=== PATIENT | female | born 1945 | race Caucasian/White ===

== ENCOUNTER 2019-05-24 22:11 | Inpatient (IN) | payer OTHER, BC ==
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
--- NOTE | 2019-05-24 22:33 | PDOC ---
Attending Attestation - Resident Resident Name: Renetta Rice - ED Attending Attestation I have performed the following: I have examined & evaluated the patient, The case was reviewed & discussed with the resident, I agree w/resident's findings & plan - HPI HPI: 05/24/19 23:46 see resident hpi - Physicial Exam PE: 05/24/19 23:47 agree with resident exam - Medical Decision Making 05/24/19 23:47 74-year-old female recently admitted for COPD exacerbation now with shortness of breath and productive cough Chest x-ray shows no focal infiltrate to suggest pneumonia Plan for readmission to the hospital for COPD exacerbation
[2019-05-24] MEDS ORDERED: ALBUTEROL SO4 2.5/IPRATROPIUM 0.5 INH SOL 3 ML VIAL.NEB. NEB ONE ×2 (23:02→23:17)
[2019-05-24 23:17] LABS: BASO % 0.6 % (0-2.0); EOS % 1.7 % (0-4.5); HEMATOCRIT 39.6 % (32.4-45.2); HEMOGLOBIN 13.1 GM/dL (10.7-15.3); LYMPH % 13.6 % (8-40); MCH 32.1 pg (25.7-33.7); MCHC 33.2 g/dl (32.0-36.0); MEAN CELL VOLUME 96.7 fl (80-96); MEAN PLT VOLUME 8.6 fl (7.5-11.1); MONO % 10.8 % (3.8-10.2); NEUT % 73.3 % (42.8-82.8); PLATELET COUNT 311 K/MM3 (134-434); RBC 4.09 M/mm3 (3.60-5.2); WHITE BLOOD COUNT 9.2 K/mm3 (4.0-10.0)
[2019-05-24 23:34] LABS: INR 1.12 (0.83-1.09); PROTHROMBIN TIME (PATIENT) 13.2 SEC (9.7-13.0)
[2019-05-24 23:37] LABS: ACTIVATED PTT 33.2 SECONDS (25.2-36.5)
[2019-05-24] MEDS ORDERED: ACETAMINOPHEN 1000 MG/100 ML VIAL (NON FORMULARY) IVPB ONE (23:40)
[2019-05-24 23:50] LABS: BILIRUBIN,TOTAL 0.4 mg/dL (0.2-1); CALCIUM 9.1 mg/dL (8.5-10.1); CREATININE 0.9 mg/dL (0.55-1.3); N-TERMINAL BNP 385.7 pg/ml (5-450); POTASSIUM 3.4 mmol/L (3.5-5.1); TOT PROT 6.9 g/dl (6.4-8.2)
[2019-05-24] MEDS ORDERED: methylPREDNISolone NA SUCC 125 MG/2 ML VIAL IVPUSH ONE (23:50)
[2019-05-25] MEDS ORDERED: methylPREDNISolone NA SUCC 125 MG/2 ML VIAL ONE (00:56)
[2019-05-25] MEDS ORDERED: ACETAMINOPHEN INJECTION 100 ML IVPB ONE (00:56)
[2019-05-25] MEDS ORDERED: ALBUTEROL SO4 2.5/IPRATROPIUM 0.5 INH SOL 3 ML VIAL.NEB. NEB ONE ×2 (01:52→02:03)
[2019-05-25] MEDS ORDERED: AZITHROMYCIN IVPB 500 MG in DEXTROSE 5%-WATER - 250 ML IVPB ONE (02:51)
[2019-05-25] MEDS ORDERED: CEFTRIAXONE 1 GM/50 ML BAG ONE (03:38)
[2019-05-25] MEDS ORDERED: AZITHROMYCIN IVPB 500 MG/250 ML BAG IVPB ONE (03:38)
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
[2019-05-25 04:12] LABS: VENOUS PC02 55.6 mmHg (38-52); VENOUS PH 7.33 (7.31-7.41)
[2019-05-25 04:14] LABS: VENOUS PO2 < 49 mmHg (28-48)
[2019-05-25] MEDS ORDERED: ALBUTEROL SO4 2.5/IPRATROPIUM 0.5 INH SOL 3 ML VIAL.NEB. NEB PRN (04:15)
[2019-05-25] MEDS ORDERED: AZITHROMYCIN 250 MG TABLET PO ONE (04:16)
--- NOTE | 2019-05-25 04:46 | PN ---
Teaching Attending Note Name of Resident: Gely Sanderson ATTENDING PHYSICIAN STATEMENT I saw and evaluated the patient. I reviewed the resident's note and discussed the case with the resident. I agree with the resident's findings and plan as documented. SUBJECTIVE: 74-year-old woman with history of COPD, chronic back pain, anxiety complained of shortness of breath, productive cough with yellow sputum and increased in her back pain. Reported recently flying up to [place] from [place] 2 weeks ago. She reports that she is ambulatory however her back pain has worsened no fevers, chills, sick contacts reported. Denied any changes in bowel or urinary habits. Of note patient is a current smokersmokes about 5 cigarettes/day. OBJECTIVE: Last Vital Signs Temp Pulse Resp BP Pulse Ox 98.2 F 94 H 24 H 120/62 98 05/25/19 04:12 05/25/19 04:12 05/25/19 04:12 05/25/19 04:12 05/25/19 04:12 GENERAL: Well developed, well nourished. Awake and alert.Appears to be in visible pain. HEENT: Normocephalic, atraumatic. PERRLA, EOMI. No conjunctival pallor. Sclera are non- icteric. Moist mucous membranes. Oropharynx is clear. NECK: Supple. Full ROM. No JVD. Carotid pulses 2+ and symmetric, without bruits. No thyromegaly. No lymphadenopathy. CARDIOVASCULAR: Regular rate and rhythm. No murmurs, rubs, or gallops. Distal pulses are 2+ and symmetric. PULMONARY: No evidence of respiratory distress. Lungs clear to auscultation bilaterally. No wheezing, rales or rhonchi. ABDOMINAL: Soft. Non-tender. Non-distended. No rebound or guarding. No organomegaly. Normoactive bowel sounds. MUSCULOSKELETAL No tenderness upon spine palpation EXTREMITIES: No cyanosis. No clubbing. No edema. No calf tenderness. SKIN: Warm and dry. Normal capillary refill. No rashes. No jaundice. PSYCHIATRIC: Cooperative. Good eye contact. Appropriate mood and affect. Abnormal Lab Results 05/24/19 05/24/19 05/24/19 23:00 23:00 23:00 MCV 96.7 H Monocytes % 10.8 H PT with INR 13.20 H INR 1.12 H POC VBG pCO2 POC VBG pO2 Potassium 3.4 L Anion Gap 6 L Random Glucose 119 H 05/25/19 03:58 MCV Monocytes % PT with INR INR POC VBG pCO2 55.6 H POC VBG pO2 < 49 H Potassium Anion Gap Random Glucose Chest CT revieweddid not have any evidence of PE or dissection. Found to have bilateral lower lobe consolidations right greater than left which could be atelectasis or pneumonia. Multiple thoracolumbar compression fractures are noted and there is a retropulsion of the T12 vertebral vertebral body with mild to moderate canal narrowing. ASSESSMENT AND PLAN: 74-year-old woman with acute back pain which may be secondary to her reported thoracolumbar compression fractures along with T12 vertebral hernia. Would likely benefit from orthopedics evaluation for possible intervention. Oxycodone as needed for pain control Orthopedics consult Calcium and vitamin D for suspected osteoporosis #Community-acquired pneumonianoted to have bibasilar infiltrates which could very well represent pneumonia. In light of her cough and shortness of breath would treat for community acquired pneumonia Sputum culture Urine Legionella antigen Blood cultures Ceftriaxone and azithromycin Supplemental oxygen via nasal cannula Continue home medications DVT prophylaxis with heparin subcu
[2019-05-25] MEDS ORDERED: oxyCODONE HCL 5 MG TABLET PO PRN (06:11)
[2019-05-25] MEDS: DOCUSATE SODIUM 100 MG CAPSULE (FP) PO SCH ×3 (06:53→21:50)
[2019-05-25 07:28] LABS: URINE COLOR YELLOW
[2019-05-25 07:29] LABS: URINE APPEARANCE CLEAR; URINE BILIRUBIN NEGATIVE (NEGATIVE); URINE GLUCOSE (UA) NEGATIVE (NEGATIVE); URINE KETONE TRACE (NEGATIVE); URINE NITRITE POSITIVE (NEGATIVE); URINE PROTEIN N (NEGATIVE); URINE UROBILINOGEN 0.2 mg/dL (0.2-1.0)
[2019-05-25 07:30] LABS: EPI CELLS 2 /HPF (0-5/HPF); HYALINE CASTS 12 /lpf (0-8); URINE LEUK ESTERASE NEGATIVE (NEGATIVE); URINE RBC 3 /hpf (0-4); URINE WBC 34 /hpf (0-5)
[2019-05-25 07:31] LABS: URINE BACTERIA 4534 /hpf (NEGATIVE)
[2019-05-25 08:16] LABS: BASO % 0.4 % (0-2.0); HEMATOCRIT 36.6 % (32.4-45.2); HEMOGLOBIN 12.3 GM/dL (10.7-15.3); LYMPH % 2.8 % (8-40); MCH 32.5 pg (25.7-33.7); MCHC 33.6 g/dl (32.0-36.0); MEAN CELL VOLUME 96.6 fl (80-96); MEAN PLT VOLUME 8.8 fl (7.5-11.1); MONO % 0.9 % (3.8-10.2); NEUT % 95.9 % (42.8-82.8); PLATELET COUNT 297 K/MM3 (134-434); RBC 3.79 M/mm3 (3.60-5.2); RDW 13.7 % (11.6-15.6); WHITE BLOOD COUNT 7.2 K/mm3 (4.0-10.0)
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
[2019-05-25 08:57] LABS: ALBUMIN 3.8 g/dl (3.4-5.0); BILIRUBIN,TOTAL 0.5 mg/dL (0.2-1); BLOOD UREA NITROGEN 13.8 mg/dL (7-18); CALCIUM 9.2 mg/dL (8.5-10.1); CREATININE 0.9 mg/dL (0.55-1.3); MAGNESIUM 2.1 mg/dL (1.8-2.4); PHOSPHOROUS 3.4 mg/dL (2.5-4.9); POTASSIUM 3.7 mmol/L (3.5-5.1); TOT PROT 7.1 g/dl (6.4-8.2)
[2019-05-25] MEDS: ACETAMINOPHEN 325 MG TABLET (FP) PO PRN ×2 (09:37→23:44)
[2019-05-25 09:39] LABS: ANISOCYTOSIS 0; MACROCYTOSIS 0; PLATELET ESTIMATE NORMAL
[2019-05-25] MEDS ORDERED: FLU VACCINE QUAD 60 MCG/0.5 ML (MDV 19-20) IM ONE (10:00)
[2019-05-25] MEDS ORDERED: HEPARIN NA (PORCINE) 5,000 UNITS/ML 1ML VIAL SQ SCH (10:00)
--- NOTE | 2019-05-25 10:28 | EKG ---
Test Reason : Blood Pressure : / mmHG Vent. Rate : 100 BPM Atrial Rate : 100 BPM P-R Int : 158 ms QRS Dur : 086 ms QT Int : 350 ms P-R-T Axes : 044 -61 023 degrees QTc Int : 451 ms SINUS RHYTHM WITH OCCASIONAL PREMATURE VENTRICULAR COMPLEXES LEFT ANTERIOR FASCICULAR BLOCK CANNOT RULE OUT INFERIOR INFARCT (CITED ON OR BEFORE 30-MAR-2015) ABNORMAL ECG WHEN COMPARED WITH ECG OF 22-MAY-2019 08:02, PREMATURE VENTRICULAR COMPLEXES ARE NOW PRESENT CRITERIA FOR ANTERIOR INFARCT ARE NO LONGER PRESENT CRITERIA FOR ANTEROLATERAL INFARCT ARE NO LONGER PRESENT QUESTIONABLE CHANGE IN INITIAL FORCES OF INFERIOR LEADS NONSPECIFIC T WAVE ABNORMALITY NO LONGER EVIDENT IN ANTERIOR LEADS Confirmed by LINDA GARVEY, YAO ([id number]) on 05/25/2019 10:28:16 AM Referred By: Confirmed By:YAO MCKEON MD
[2019-05-25] MEDS ORDERED: cefTRIAXone SODIUM 1 GM VIAL ONE (10:53)
[2019-05-25] MEDS ORDERED: DEXTROSE 5%-WATER - 50 ML IVPB ONE (10:53)
[2019-05-25] MEDS: CEFTRIAXONE 1 GM in DEXTROSE 5%-WATER - 50 ML IVPB SCH ×2 (10:56→15:40)
[2019-05-25 11:06] LABS: PH,URINE 6.5 (5.0-8.0); URINE APPEARANCE CLEAR; URINE BILIRUBIN NEGATIVE (NEGATIVE); URINE COLOR YELLOW; URINE GLUCOSE (UA) NEGATIVE (NEGATIVE); URINE KETONE NEGATIVE (NEGATIVE); URINE PROTEIN TRACE (NEGATIVE)
[2019-05-25 11:07] LABS: URINE LEUK ESTERASE NEGATIVE (NEGATIVE); URINE NITRITE NEGATIVE (NEGATIVE); URINE UROBILINOGEN 0.2 mg/dL (0.2-1.0)
[2019-05-25 11:57] LABS: ARTERIAL BLD GAS O2 SATURATION 87.5 % (95-98); ARTERIAL BLOOD GAS BASE EXCESS 4.7 meq/l (-2-2); ARTERIAL BLOOD GAS PCO2 45.7 mmHg (35-45); ARTERIAL BLOOD GAS PO2 54.7 mmHg (80-100); ARTERIAL BLOOD GAS pH 7.42 (7.35-7.45)
[2019-05-25 11:58] LABS: ALLENS TEST POSITIVE
[2019-05-25] MEDS: predniSONE 20 MG TABLET (UD) PO SCH (12:22)
--- NOTE | 2019-05-25 13:29 | CONS ---
ORTHOPEDIC CONSULTATION DATE OF CONSULTATION: 05/25/2019 HISTORY OF PRESENT ILLNESS: Patient is a 74-year-old, female complaining of chronic back pain for greater than 10 years. It is getting progressively worse, she says. No recent fall or trauma. PHYSICAL EXAMINATION: Neuromuscular: She has a rounded thorax, as well as some kyphosis, and some tenderness midline paraspinal areas, lower thoracic, upper lumbar region, but good range of motion of bilateral hips, knees, ankles, and toes. . Intact sensation throughout. No neurological deficits distally. IMAGING: A CTA that was performed for her lung condition which had brought her into the hospital shows multiple compression fractures. IMPRESSION: Chronic back pain with multiple chronic compression fractures. No acute pathology at this time. PLAN: Analgesics, pain management, and physical therapy for mobilization. Patient may be discharged when medically optimized. DOREEN GRANDA M.D. [id number]
[2019-05-25] MEDS ORDERED: PT OWN MED DRAWER 7, Y5N ONE ×4 (14:26→21:38)
[2019-05-25] MEDS: TIZANIDINE HCL 2 MG TABLET PO SCH ×2 (14:29→21:54)
[2019-05-25] MEDS: LIDOCAINE 5% TOPICAL PATCH TP SCH (14:33)
[2019-05-25] MEDS ORDERED: PRAMIPEXOLE DIHYDROCHLORIDE 0.5 MG TABLET PO SCH (14:45)
[2019-05-25] MEDS ORDERED: ALBUTEROL SO4 0.083% IH SOL 2.5 MG/3 ML VIAL.NEB. NEB PRN (14:51)
--- NOTE | 2019-05-25 14:57 | PN ---
Teaching Attending Note Name of Resident: Mariano Florian ATTENDING PHYSICIAN STATEMENT I saw and evaluated the patient. I reviewed the resident's note and discussed the case with the resident. I agree with the resident's findings and plan as documented with exceptions below. SUBJECTIVE: Patient seen and examined. sleepy but arousable, breathing/cough improved, Still with ongoing chronic low back pain. no leg weakness/tingling/numbness noted. OBJECTIVE: Vital Signs Period Temp Pulse Resp BP Sys/Lopez Pulse Ox Last 24 Hr 98.2 F-98.8 F 93-100 18-26 105-121/54-62 86-98 Intake & Output 05/22/19 05/23/19 05/24/19 05/25/19 23:59 23:59 23:59 23:59 Weight 190 lb 157 lb 11.2 oz General: sleeping in bed, arousable, no acute distress or use of accessory muscles of respiration Neck: soft, supple, no JVD visualized Chest: bilateral scattered rhonchi, pos air entry, few basilar rales Abdomen: soft, obese, NT Musculoskeletal: lower lumbosacral spinal tenderness, SLR LLR 30 degrees with low back pain, RLE SLR with no limitation, LE power 5/5, sensation intact and symmetric to light touch LE Extremities: no edema Home Medications Medication Instructions Recorded Furosemide [Lasix -] 40 mg PO DAILY 01/21/15 Zolpidem Tartrate [Ambien -] 10 mg PO HS 03/26/15 Clonazepam 1 mg PO BID PRN 05/25/19 Pramipexole Di-HCl [Mirapex] 0.5 mg PO DAILY 05/25/19 Sumatriptan Succinate [Imitrex 0.5 ml SQ PRN PRN 05/25/19 Injection -] Tramadol HCl 50 mg PO DAILY 05/25/19 clonazePAM [Clonazepam] 2 mg PO DAILY 05/25/19 Active Medications Acetaminophen (Tylenol -) 650 mg PO Q4H PRN PRN Reason: PAIN Last Admin: 05/25/19 09:37 Dose: 650 mg Albuterol Sulfate (Ventolin 0.083% Nebulizer Soln -) 1 amp NEB Q4H PRN PRN Reason: SHORT OF BREATH/WHEEZING Albuterol/Ipratropium (Duoneb -) 1 amp NEB RQID OSIRIS Azithromycin (Zithromax -) 500 mg PO DAILY [facility] Stop: 05/30/19 10:01 Clonazepam (Klonopin -) 0.5 mg PO BID PRN PRN Reason: ANXIETY Docusate Sodium (Colace -) 100 mg PO TID [facility] Last Admin: 05/25/19 06:53 Dose: 100 mg Furosemide (Lasix -) 40 mg PO DAILY [facility] Heparin Sodium (Porcine) (Heparin -) 5,000 unit SQ BID [facility] Last Admin: 05/25/19 10:57 Dose: 5,000 unit Ceftriaxone Sodium 1 gm/ (Dextrose) 50 mls @ 100 mls/hr IVPB DAILY [facility]; Protocol Last Admin: 05/25/19 10:56 Dose: 100 mls/hr Lidocaine (Lidoderm Patch -) 1 patch TP DAILY [facility] Last Admin: 05/25/19 14:33 Dose: 1 patch Miscellaneous (Lidoderm Patch Removal) 1 each MC DAILY@2200 [facility] Pramipexole Dihydrochloride (Mirapex -) 0.5 mg PO HS [facility] Prednisone (Deltasone -) 40 mg PO DAILY [facility] Last Admin: 05/25/19 12:22 Dose: 40 mg Tizanidine HCl (Tizanidine Hcl) 2 mg PO TID [facility] Last Admin: 05/25/19 14:29 Dose: 2 mg Laboratory Results - last 24 hr 05/24/19 05/24/19 05/24/19 23:00 23:00 23:00 WBC 9.2 RBC 4.09 Hgb 13.1 Hct 39.6 MCV 96.7 H MCH 32.1 MCHC 33.2 RDW 14.0 Plt Count 311 MPV 8.6 Absolute Neuts (auto) 6.7 Neutrophils % 73.3 Neutrophils % (Manual) Band Neutrophils % Lymphocytes % 13.6 D Lymphocytes % (Manual) Monocytes % 10.8 H Monocytes % (Manual) Eosinophils % 1.7 Eosinophils % (Manual) Basophils % 0.6 Basophils % (Manual) Myelocytes % (Man) Promyelocytes % (Man) Blast Cells % (Manual) Nucleated RBC % 0 Metamyelocytes Hypochromia Platelet Estimate Polychromasia Poikilocytosis Anisocytosis Microcytosis Macrocytosis PT with INR INR PTT (Actin FS) Anticoagulation Therapy Puncture Site ABG pH ABG pCO2 at Pt Temp ABG pO2 at Pt Temp ABG HCO3 ABG O2 Sat (Measured) ABG O2 Content ABG Base Excess Stewart Test VBG pH POC VBG pCO2 POC VBG pO2 VBG HCO3 VBG O2 Sat (Laurie) VBG Base Excess O2 Delivery Device Oxygen Flow Rate Vent Mode Vent Rate Mechanical Rate Pressure Support Vent Sodium 140 Potassium 3.4 L Chloride 102 Carbon Dioxide 31 Anion Gap 6 L BUN 16.0 Creatinine 0.9 Est GFR (CKD-EPI)AfAm 71.98 Est GFR (CKD-EPI)NonAf 62.11 Random Glucose 119 H Lactic Acid 1.0 Calcium 9.1 Phosphorus Magnesium Total Bilirubin 0.4 AST 17 ALT 15 Alkaline Phosphatase 85 Troponin I B-Natriuretic Peptide Total Protein 6.9 Albumin 4.0 Urine Color Urine Appearance Urine pH Ur Specific [place] Urine Protein Urine Glucose (UA) Urine Ketones Urine Blood Urine Nitrite Urine Bilirubin Urine Urobilinogen Ur Leukocyte Esterase Urine WBC (Auto) Urine RBC (Auto) Urine Casts (Auto) U Pathogenic Cast Auto U Epithel Cells (Auto) Urine Bacteria (Auto) 05/24/19 05/24/19 05/25/19 23:00 23:00 00:00 WBC RBC Hgb Hct MCV MCH MCHC RDW Plt Count MPV Absolute Neuts (auto) Neutrophils % Neutrophils % (Manual) Band Neutrophils % Lymphocytes % Lymphocytes % (Manual) Monocytes % Monocytes % (Manual) Eosinophils % Eosinophils % (Manual) Basophils % Basophils % (Manual) Myelocytes % (Man) Promyelocytes % (Man) Blast Cells % (Manual) Nucleated RBC % Metamyelocytes Hypochromia Platelet Estimate Polychromasia Poikilocytosis Anisocytosis Microcytosis Macrocytosis PT with INR 13.20 H INR 1.12 H PTT (Actin FS) 33.2 Anticoagulation Therapy Puncture Site ABG pH ABG pCO2 at Pt Temp ABG pO2 at Pt Temp ABG HCO3 ABG O2 Sat (Measured) ABG O2 Content ABG Base Excess Stewart Test VBG pH POC VBG pCO2 POC VBG pO2 VBG HCO3 VBG O2 Sat (Laurie) VBG Base Excess O2 Delivery Device Oxygen Flow Rate Vent Mode Vent Rate Mechanical Rate Pressure Support Vent Sodium Potassium Chloride Carbon Dioxide Anion Gap BUN Creatinine Est GFR (CKD-EPI)AfAm Est GFR (CKD-EPI)NonAf Random Glucose Lactic Acid Calcium Phosphorus Magnesium Total Bilirubin AST ALT Alkaline Phosphatase Troponin I < 0.02 B-Natriuretic Peptide 385.7 Total Protein Albumin Urine Color Yellow Urine Appearance Clear Urine pH 5.0 Ur Specific [place] 1.060 H Urine Protein N Urine Glucose (UA) Negative Urine Ketones Trace H Urine Blood N Urine Nitrite Positive H Urine Bilirubin Negative Urine Urobilinogen 0.2 Ur Leukocyte Esterase Negative Urine WBC (Auto) 34 Urine RBC (Auto) 3 Urine Casts (Auto) 12 U Pathogenic Cast Auto None U Epithel Cells (Auto) 2 Urine Bacteria (Auto) [id number] 05/25/19 05/25/19 05/25/19 03:58 07:20 07:30 WBC 7.2 RBC 3.79 Hgb 12.3 Hct 36.6 MCV 96.6 H MCH 32.5 MCHC 33.6 RDW 13.7 Plt Count 297 MPV 8.8 Absolute Neuts (auto) 6.9 Neutrophils % 95.9 H D Neutrophils % (Manual) 98.0 H Band Neutrophils % 0.0 Lymphocytes % 2.8 L D Lymphocytes % (Manual) 1.0 L Monocytes % 0.9 L D Monocytes % (Manual) 1 L Eosinophils % 0.0 D Eosinophils % (Manual) 0.0 Basophils % 0.4 Basophils % (Manual) 0.0 Myelocytes % (Man) 0 Promyelocytes % (Man) 0 Blast Cells % (Manual) 0 Nucleated RBC % 0 Metamyelocytes 0 Hypochromia 0 Platelet Estimate Normal Polychromasia 0 Poikilocytosis 0 Anisocytosis 0 Microcytosis 0 Macrocytosis 0 PT with INR INR PTT (Actin FS) Anticoagulation Therapy Puncture Site ABG pH ABG pCO2 at Pt Temp ABG pO2 at Pt Temp ABG HCO3 ABG O2 Sat (Measured) ABG O2 Content ABG Base Excess Stewart Test VBG pH 7.33 POC VBG pCO2 55.6 H POC VBG pO2 < 49 H VBG HCO3 28.3 VBG O2 Sat (Laurie) 72.7 VBG Base Excess 1.8 O2 Delivery Device Oxygen Flow Rate Vent Mode Vent Rate Mechanical Rate Pressure Support Vent Sodium 139 Potassium 3.7 Chloride 102 Carbon Dioxide 29 Anion Gap 9 BUN 13.8 Creatinine 0.9 Est GFR (CKD-EPI)AfAm 71.98 Est GFR (CKD-EPI)NonAf 62.11 Random Glucose 194 H Lactic Acid Calcium 9.2 Phosphorus 3.4 Magnesium 2.1 Total Bilirubin 0.5 AST 14 L ALT 15 Alkaline Phosphatase 81 Troponin I B-Natriuretic Peptide Total Protein 7.1 Albumin 3.8 Urine Color Urine Appearance Urine pH Ur Specific [place] Urine Protein Urine Glucose (UA) Urine Ketones Urine Blood Urine Nitrite Urine Bilirubin Urine Urobilinogen Ur Leukocyte Esterase Urine WBC (Auto) Urine RBC (Auto) Urine Casts (Auto) U Pathogenic Cast Auto U Epithel Cells (Auto) Urine Bacteria (Auto) 05/25/19 05/25/19 09:30 11:40 WBC RBC Hgb Hct MCV MCH MCHC RDW Plt Count MPV Absolute Neuts (auto) Neutrophils % Neutrophils % (Manual) Band Neutrophils % Lymphocytes % Lymphocytes % (Manual) Monocytes % Monocytes % (Manual) Eosinophils % Eosinophils % (Manual) Basophils % Basophils % (Manual) Myelocytes % (Man) Promyelocytes % (Man) Blast Cells % (Manual) Nucleated RBC % Metamyelocytes Hypochromia Platelet Estimate Polychromasia Poikilocytosis Anisocytosis Microcytosis Macrocytosis PT with INR INR PTT (Actin FS) Anticoagulation Therapy No Result Required. Puncture Site Right radial ABG pH 7.42 ABG pCO2 at Pt Temp 45.7 H ABG pO2 at Pt Temp 54.7 L ABG HCO3 29.2 H ABG O2 Sat (Measured) 87.5 L ABG O2 Content 12.7 ABG Base Excess 4.7 H Stewart Test Positive VBG pH POC VBG pCO2 POC VBG pO2 VBG HCO3 VBG O2 Sat (Laurie) VBG Base Excess O2 Delivery Device Room air Oxygen Flow Rate 21% Vent Mode No Result Required. Vent Rate No Result Required. Mechanical Rate No Result Required. Pressure Support Vent No Result Required. Sodium Potassium Chloride Carbon Dioxide Anion Gap BUN Creatinine Est GFR (CKD-EPI)AfAm Est GFR (CKD-EPI)NonAf Random Glucose Lactic Acid Calcium Phosphorus Magnesium Total Bilirubin AST ALT Alkaline Phosphatase Troponin I B-Natriuretic Peptide Total Protein Albumin Urine Color Yellow Urine Appearance Clear Urine pH 6.5 D Ur Specific [place] 1.062 H Urine Protein Trace Urine Glucose (UA) Negative Urine Ketones Negative Urine Blood Negative Urine Nitrite Negative D Urine Bilirubin Negative Urine Urobilinogen 0.2 Ur Leukocyte Esterase Negative Urine WBC (Auto) Urine RBC (Auto) Urine Casts (Auto) U Pathogenic Cast Auto U Epithel Cells (Auto) Urine Bacteria (Auto) CTA chest results and images reviewed ASSESSMENT AND PLAN: 74 yof with PMHx of COPD/Centrilobular emphysema, active smoker, chronic back pain, anxiety admitted with cough/productive sputum, hypoxia and chronic low back pain -Acute bibasilar community acquired PNA -Acute COPD exacerbation -Acute on ?chronic hypoxic/hypercapneic respiratory insufficiency -Osteoporotic multiple vertebral compression fractures. -Tobacco dependence -Anxiety Plan: Ceftriaxone/Azithromycin. Blood/sputum cx. Urine PNA studies neg. Standing and prn nebs. Prednisone 40 mg daily short course. Will need home oxygen needs assessment prior to dc Continue home lasix. No concerns for Volume overload currently. Back symptoms chronic, no recent trauma. Neurological exam non concerning Orthopedic/Neurosurgery input noted. Pain control, PT. Caution with muscle relaxants/narcotics for now given intermittent lethargy and respiratory concerns. Lidocaine patch/tylenol. taper home clonazepam prn, use with caution. PPI DVTPPX heparin Dispo Pending clinical improvement. Discussed with patient and nursing.
[2019-05-25] MEDS: ALBUTEROL SO4 2.5/IPRATROPIUM 0.5 INH SOL 3 ML VIAL.NEB. NEB SCH ×2 (16:30→20:10)
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
[2019-05-25] MEDS: clonazePAM 0.5 MG TABLET PO PRN (18:33)
[2019-05-25] MEDS: PRAMIPEXOLE DIHYDROCHLORIDE 0.5 MG TABLET PO SCH (21:53)
[2019-05-25] MEDS: LIDOCAINE PATCH REMOVAL MC SCH (22:00)
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
[2019-05-26] MEDS: DOCUSATE SODIUM 100 MG CAPSULE (FP) PO SCH ×3 (05:29→21:43)
[2019-05-26] MEDS: TIZANIDINE HCL 2 MG TABLET PO SCH ×3 (05:29→21:44)
[2019-05-26] MEDS: clonazePAM 0.5 MG TABLET PO PRN ×2 (05:29→21:52)
[2019-05-26] MEDS: ACETAMINOPHEN 325 MG TABLET (FP) PO PRN ×3 (05:30→21:52)
[2019-05-26] MEDS: ALBUTEROL SO4 2.5/IPRATROPIUM 0.5 INH SOL 3 ML VIAL.NEB. NEB SCH ×4 (07:45→21:09)
[2019-05-26 09:18] LABS: BASO % 0.2 % (0-2.0); EOS % 0.2 % (0-4.5); HEMATOCRIT 31.7 % (32.4-45.2); HEMOGLOBIN 10.5 GM/dL (10.7-15.3); LYMPH % 12.7 % (8-40); MCH 32.1 pg (25.7-33.7); MCHC 33.2 g/dl (32.0-36.0); MEAN CELL VOLUME 96.8 fl (80-96); MEAN PLT VOLUME 9.3 fl (7.5-11.1); MONO % 6.8 % (3.8-10.2); NEUT % 80.1 % (42.8-82.8); PLATELET COUNT 279 K/MM3 (134-434); RBC 3.28 M/mm3 (3.60-5.2); RDW 13.7 % (11.6-15.6); WHITE BLOOD COUNT 9.8 K/mm3 (4.0-10.0)
--- NOTE | 2019-05-26 09:49 | PN ---
Teaching Attending Note Name of Resident: Mariano Florian ATTENDING PHYSICIAN STATEMENT I saw and evaluated the patient. I reviewed the resident's note and discussed the case with the resident. I agree with the resident's findings and plan as documented with exceptions below. SUBJECTIVE: Patient seen and examined. Pleasant today, awake. breathing better, back pain improved, ambulated with PT, eager to go home. OBJECTIVE: Vital Signs Period Temp Pulse Resp BP Sys/Lopez Pulse Ox Last 24 Hr 98.4 F-98.6 F 68-85 18-18 124-134/54-58 91-92 Intake & Output 05/23/19 05/24/19 05/25/19 05/26/19 23:59 23:59 23:59 23:59 Intake Total 550 250 Balance 550 250 Weight 190 lb 157 lb 11.2 oz General: sitting in bed, pleasant, awake, no acute distress Neck: soft, supple Chest: no coarse rhonchi appreciated today, decreased air entry all over Abdomen:soft, obese, NT Extremities: no pedal edema Home Medications Medication Instructions Recorded Furosemide [Lasix -] 40 mg PO DAILY 01/21/15 Zolpidem Tartrate [Ambien -] 10 mg PO HS 03/26/15 Clonazepam 1 mg PO BID PRN 05/25/19 Pramipexole Di-HCl [Mirapex] 0.5 mg PO DAILY 05/25/19 Sumatriptan Succinate [Imitrex 0.5 ml SQ PRN PRN 05/25/19 Injection -] Tramadol HCl 50 mg PO DAILY 05/25/19 clonazePAM [Clonazepam] 2 mg PO DAILY 05/25/19 Active Medications Acetaminophen (Tylenol -) 650 mg PO Q4H PRN PRN Reason: PAIN Last Admin: 05/26/19 05:30 Dose: 650 mg Albuterol Sulfate (Ventolin 0.083% Nebulizer Soln -) 1 amp NEB Q4H PRN PRN Reason: SHORT OF BREATH/WHEEZING Albuterol/Ipratropium (Duoneb -) 1 amp NEB RQID OSIRIS Last Admin: 05/26/19 07:45 Dose: 1 amp Azithromycin (Zithromax -) 500 mg PO DAILY OSIRIS Stop: 05/30/19 10:01 Clonazepam (Klonopin -) 0.5 mg PO BID PRN PRN Reason: ANXIETY Last Admin: 05/26/19 05:29 Dose: 0.5 mg Docusate Sodium (Colace -) 100 mg PO TID [facility] Last Admin: 05/26/19 05:29 Dose: Not Given Enoxaparin Sodium (Lovenox -) 40 mg SQ DAILY [facility] Furosemide (Lasix -) 40 mg PO DAILY [facility] Ceftriaxone Sodium 1 gm/ (Dextrose) 50 mls @ 100 mls/hr IVPB DAILY [facility]; Protocol Last Admin: 05/25/19 15:40 Dose: 100 mls/hr Lidocaine (Lidoderm Patch -) 1 patch TP DAILY [facility] Last Admin: 05/25/19 14:33 Dose: 1 patch Miscellaneous (Lidoderm Patch Removal) 1 each MC DAILY@2200 [facility] Last Admin: 05/25/19 22:00 Dose: 1 each Pantoprazole Sodium (Protonix -) 40 mg PO DAILY [facility] Pramipexole Dihydrochloride (Mirapex -) 0.5 mg PO HS [facility] Last Admin: 05/25/19 21:53 Dose: 0.5 mg Prednisone (Deltasone -) 40 mg PO DAILY [facility] Last Admin: 05/25/19 12:22 Dose: 40 mg Tizanidine HCl (Tizanidine Hcl) 2 mg PO TID [facility] Last Admin: 05/26/19 05:29 Dose: 2 mg Laboratory Results - last 24 hr 05/25/19 05/25/19 05/26/19 09:30 11:40 08:00 WBC 9.8 RBC 3.28 L Hgb 10.5 L Hct 31.7 L MCV 96.8 H MCH 32.1 MCHC 33.2 RDW 13.7 Plt Count 279 MPV 9.3 Absolute Neuts (auto) 7.9 Neutrophils % 80.1 Lymphocytes % 12.7 D Monocytes % 6.8 D Eosinophils % 0.2 D Basophils % 0.2 Nucleated RBC % 0 Anticoagulation Therapy No Result Required. Puncture Site Right radial ABG pH 7.42 ABG pCO2 at Pt Temp 45.7 H ABG pO2 at Pt Temp 54.7 L ABG HCO3 29.2 H ABG O2 Sat (Measured) 87.5 L ABG O2 Content 12.7 ABG Base Excess 4.7 H Stewart Test Positive O2 Delivery Device Room air Oxygen Flow Rate 21% Vent Mode No Result Required. Vent Rate No Result Required. Mechanical Rate No Result Required. Pressure Support Vent No Result Required. Sodium Potassium Chloride Carbon Dioxide Anion Gap BUN Creatinine Est GFR (CKD-EPI)AfAm Est GFR (CKD-EPI)NonAf Random Glucose Calcium Phosphorus Magnesium Urine Color Yellow Urine Appearance Clear Urine pH 6.5 D Ur Specific [place] 1.062 H Urine Protein Trace Urine Glucose (UA) Negative Urine Ketones Negative Urine Blood Negative Urine Nitrite Negative D Urine Bilirubin Negative Urine Urobilinogen 0.2 Ur Leukocyte Esterase Negative 05/26/19 08:00 WBC RBC Hgb Hct MCV MCH MCHC RDW Plt Count MPV Absolute Neuts (auto) Neutrophils % Lymphocytes % Monocytes % Eosinophils % Basophils % Nucleated RBC % Anticoagulation Therapy Puncture Site ABG pH ABG pCO2 at Pt Temp ABG pO2 at Pt Temp ABG HCO3 ABG O2 Sat (Measured) ABG O2 Content ABG Base Excess Stewart Test O2 Delivery Device Oxygen Flow Rate Vent Mode Vent Rate Mechanical Rate Pressure Support Vent Sodium 141 Potassium 4.0 Chloride 106 Carbon Dioxide 30 Anion Gap 6 L BUN 15.9 Creatinine 0.6 Est GFR (CKD-EPI)AfAm 102.62 Est GFR (CKD-EPI)NonAf 88.54 Random Glucose 93 Calcium 9.1 Phosphorus 2.7 Magnesium 2.3 Urine Color Urine Appearance Urine pH Ur Specific [place] Urine Protein Urine Glucose (UA) Urine Ketones Urine Blood Urine Nitrite Urine Bilirubin Urine Urobilinogen Ur Leukocyte Esterase Microbiology 05/25/19 00:00 Urine - Urine Clean Catch Urine Culture - Preliminary Lactose Fermenting Neg Bacilli 05/24/19 23:00 Blood - Peripheral Venous Blood Culture - Preliminary NO GROWTH OBTAINED AFTER 24 HOURS, INCUBATION TO CONTINUE FOR 4 DAYS. 05/24/19 23:00 Blood - Peripheral Venous Blood Culture - Preliminary NO GROWTH OBTAINED AFTER 24 HOURS, INCUBATION TO CONTINUE FOR 4 DAYS. 05/25/19 09:30 Urine For Antigen Detection Legionella Antigen - Final 05/25/19 09:30 Urine For Antigen Detection Streptococcus pneumoniae Antigen (M - Final ASSESSMENT AND PLAN: 74 yof with PMHx of COPD/Centrilobular emphysema, active smoker, chronic back pain, anxiety admitted with cough/productive sputum, hypoxia and chronic low back pain -Acute bibasilar community acquired PNA -Acute COPD exacerbation -Acute on ?chronic hypoxic/hypercapneic respiratory insufficiency -Osteoporotic multiple vertebral compression fractures. -Asymptomatic bacteruria -Tobacco dependence -Anxiety Plan: Doing well transition to cefuroxime 500 mg BID for 7 days, Azithromycin 500 mg daily for 2 days. Prednisone taper, home oxygen needs eval. Back pain improved, tylenol/tizanidine/lidocaine. Ongoing home PT. Outpatient follow up with Dr. Herron. Continue home lasix. PPI DVTPPX heparin Dispo dc home with services today after home oxygen needs eval and home O2 arrangements accordingly. Discussed with patient and social work, all questions answered.
[2019-05-26] MEDS ORDERED: AZITHROMYCIN 250 MG TABLET PO SCH (10:00)
[2019-05-26 10:03] LABS: BLOOD UREA NITROGEN 15.9 mg/dL (7-18); CALCIUM 9.1 mg/dL (8.5-10.1); CREATININE 0.6 mg/dL (0.55-1.3); MAGNESIUM 2.3 mg/dL (1.8-2.4); PHOSPHOROUS 2.7 mg/dL (2.5-4.9)
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
[2019-05-26] MEDS ORDERED: cefTRIAXone SODIUM 1 GM VIAL ONE (11:22)
[2019-05-26] MEDS ORDERED: DEXTROSE 5%-WATER - 50 ML IVPB ONE (11:22)
[2019-05-26] MEDS: FUROSEMIDE 40 MG TABLET (FP) PO SCH (11:34)
[2019-05-26] MEDS: ENOXAPARIN NA (PORCINE) 40 MG/0.4 ML DISP.SYRIN SQ SCH (11:34)
[2019-05-26] MEDS: predniSONE 20 MG TABLET (UD) PO SCH (11:34)
[2019-05-26] MEDS: PANTOPRAZOLE 40 MG TABLET (FP) PO SCH (11:34)
[2019-05-26] MEDS: LIDOCAINE 5% TOPICAL PATCH TP SCH (11:42)
[2019-05-26] MEDS: AZITHROMYCIN 250 MG TABLET PO SCH (11:44)
[2019-05-26] MEDS: CEFTRIAXONE 1 GM in DEXTROSE 5%-WATER - 50 ML IVPB SCH (11:56)
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
--- NOTE | 2019-05-26 12:24 | ECHO ---
Name: GUILLERMO COUCH Exam:Adult Echocardiogram Study Date: 05/26/2019 09:55 AM Age: 74 yrs Reason For Study: assess lv function Height: 65 in Weight: 157 lb BSA: 1.8 m2 MMode/2D Measurements & Calculations IVSd: 0.98 cm Ao root diam: 2.8 cm LVIDd: 4.2 cm LA dimension: 3.5 cm LVIDs: 3.1 cm LVPWd: 1.1 cm LVPWs: 1.4 cm EDV(Teich): 79.9 ml ESV(Teich): 38.2 ml LVOT diam: 1.7 cm LAV (MOD-bp): 62.0 ml Doppler Measurements & Calculations MV E max shaun: 91.3 cm/sec Ao V2 max: 158.8 cm/sec MV A max shaun: 113.0 cm/sec Ao max P.1 mmHg MV E/A: 0.81 AI P1/2t: 411.4 msec MV dec time: 0.21 sec AI max shaun: 387.7 cm/sec TR max shaun: 235.8 cm/sec AI max P.3 mmHg TR max P.5 mmHg AI dec slope: 276.0 cm/sec2 PA V2 max: 89.2 cm/sec Med Peak E' Shaun: 7.8 cm/sec PA max P.2 mmHg Med E/e': 11.7 Lat Peak E' Shaun: 9.8 cm/sec Lat E/e': 9.4 Procedure A complete two-dimensional transthoracic echocardiogram was performed (2D, M-mode, Doppler and color flow Doppler). Left Ventricle The left ventricular size, thickness and function are normal. The left ventricular ejection fraction is normal. Ejection Fraction = 60-65%. The left ventricular wall motion is normal. Right Ventricle The right ventricle is normal in size and function. Atria Normal left and right atrial size and function. Mitral Valve There is no mitral regurgitation noted. Tricuspid Valve There is trace tricuspid regurgitation. Right ventricular systolic pressure is normal. Aortic Valve No hemodynamically significant valvular aortic stenosis. Mild aortic regurgitation. Pulmonic Valve There is no pulmonic valvular regurgitation. Great Vessels The aortic root is normal size. Pericardium/Pleura There is no pericardial effusion. Interpretation Summary The left ventricular size, thickness and function are normal The right ventricle is normal in size and function. There is trace tricuspid regurgitation. Mild aortic regurgitation. MD Rg Sierra 05/26/2019 12:24 PM
[2019-05-26] MEDS ORDERED: traMADol HCL 50 MG TABLET PO ONE (13:06)
[2019-05-26] MEDS ORDERED: PT OWN MED DRAWER 7, Y5N ONE ×2 (13:15→21:34)
[2019-05-26] MEDS ORDERED: oxyCODONE HCL 5 MG TABLET PO ONE (14:00)
[2019-05-26 14:12] VITALS: BMI 26.1
[2019-05-26] MEDS: LIDOCAINE PATCH REMOVAL MC SCH (21:43)
[2019-05-26] MEDS: PRAMIPEXOLE DIHYDROCHLORIDE 0.5 MG TABLET PO SCH (21:44)
[2019-05-27] MEDS: ACETAMINOPHEN 325 MG TABLET (FP) PO PRN (03:32)
[2019-05-27] MEDS: DOCUSATE SODIUM 100 MG CAPSULE (FP) PO SCH (06:10)
[2019-05-27] MEDS: TIZANIDINE HCL 2 MG TABLET PO SCH ×2 (06:50→12:55)
[2019-05-27] MEDS: ALBUTEROL SO4 2.5/IPRATROPIUM 0.5 INH SOL 3 ML VIAL.NEB. NEB SCH ×2 (07:40→11:20)
[2019-05-27 08:11] LABS: HEMATOCRIT 31.8 % (32.4-45.2); HEMOGLOBIN 10.6 GM/dL (10.7-15.3); MCHC 33.3 g/dl (32.0-36.0); MEAN CELL VOLUME 96.2 fl (80-96); PLATELET COUNT 281 K/MM3 (134-434); RBC 3.31 M/mm3 (3.60-5.2); RDW 13.4 % (11.6-15.6)
[2019-05-27 08:25] LABS: BLOOD UREA NITROGEN 19.1 mg/dL (7-18); CALCIUM 8.9 mg/dL (8.5-10.1); CREATININE 0.7 mg/dL (0.55-1.3); MAGNESIUM 2.3 mg/dL (1.8-2.4); POTASSIUM 3.8 mmol/L (3.5-5.1)
[2019-05-27] MEDS ORDERED: traMADol HCL 50 MG TABLET PO PRN (08:39)
[2019-05-27] MEDS ORDERED: cefTRIAXone SODIUM 1 GM VIAL ONE (10:00)
[2019-05-27] MEDS ORDERED: DEXTROSE 5%-WATER - 50 ML IVPB ONE (10:00)
[2019-05-27] MEDS ORDERED: PT OWN MED DRAWER 7, Y5N ONE (10:00)
[2019-05-27] MEDS: ENOXAPARIN NA (PORCINE) 40 MG/0.4 ML DISP.SYRIN SQ SCH (10:14)
[2019-05-27] MEDS: CEFTRIAXONE 1 GM in DEXTROSE 5%-WATER - 50 ML IVPB SCH (10:14)
[2019-05-27] MEDS: predniSONE 20 MG TABLET (UD) PO SCH (10:15)
[2019-05-27] MEDS: FUROSEMIDE 40 MG TABLET (FP) PO SCH (10:15)
[2019-05-27] MEDS: LIDOCAINE 5% TOPICAL PATCH TP SCH (10:15)
[2019-05-27] MEDS: PANTOPRAZOLE 40 MG TABLET (FP) PO SCH (10:15)
[2019-05-27] MEDS: AZITHROMYCIN 250 MG TABLET PO SCH (10:16)
--- NOTE | 2019-05-27 11:24 | PN ---
Teaching Attending Note Name of Resident: Mariano Florian ATTENDING PHYSICIAN STATEMENT I saw and evaluated the patient. I reviewed the resident's note and discussed the case with the resident. I agree with the resident's findings and plan as documented with exceptions below. SUBJECTIVE: Patient seen and examined. breathing continues to improve. Asking for nebulizer treatment, doing well. OBJECTIVE: Vital Signs Period Temp Pulse Resp BP Sys/Lopez Pulse Ox Last 24 Hr 97.7 F-98.9 F 64-95 18-18 123-140/59-83 95-95 Intake & Output 05/24/19 05/25/19 05/26/19 05/27/19 23:59 23:59 23:59 23:59 Intake Total 550 1200 360 Balance 550 1200 360 Weight 190 lb 157 lb 11.2 oz 157 lb general: sitting in bed, no acute distress Chest: improved air entry, no rhonchi noted Abdomen:Soft, obese NT musculoskeletal: no spinal tenderness, SLR unchanged Home Medications Medication Instructions Recorded Furosemide [Lasix -] 40 mg PO DAILY 01/21/15 Zolpidem Tartrate [Ambien] 10 mg PO HS 03/26/15 Pramipexole Di-HCl [Mirapex] 0.5 mg PO DAILY 05/25/19 Sumatriptan Succinate [Imitrex 0.5 ml SQ PRN PRN 05/25/19 Injection -] clonazePAM [Clonazepam] 2 mg PO DAILY 05/25/19 Azithromycin 500 mg PO DAILY #2 tablet 05/26/19 Cefuroxime Axetil [Cefuroxime] 500 mg PO BID #14 tablet 05/26/19 Lidocaine 5% Patch [Lidoderm -] 1 patch TP DAILY #7 patch 05/26/19 Prednisone See Taper PO DAILY #20 tablet 05/26/19 Tizanidine HCl 2 mg PO TID PRN #60 tablet 05/26/19 Tramadol HCl 50 mg PO DAILY PRN 05/26/19 Albuterol 0.083% Nebulizer Charmaine 1 neb NEB Q6H PRN #30 vial 05/27/19 [Ventolin 0.083% Nebulizer Soln -] Nebulizer Accessories [Adult 1 each MC DAILY #1 each 05/27/19 Aerosol Mask] Nebulizer and Compressor [Comp-Air 1 each ASDIR #1 each 05/27/19 Nebulizer System] Laboratory Results - last 24 hr 05/27/19 05/27/19 07:10 07:10 WBC 7.0 RBC 3.31 L Hgb 10.6 L Hct 31.8 L MCV 96.2 H MCH 32.0 MCHC 33.3 RDW 13.4 Plt Count 281 MPV 9.0 Sodium 140 Potassium 3.8 Chloride 104 Carbon Dioxide 32 Anion Gap 4 L BUN 19.1 H Creatinine 0.7 Est GFR (CKD-EPI)AfAm 97.54 Est GFR (CKD-EPI)NonAf 84.16 Random Glucose 81 Calcium 8.9 Phosphorus 3.0 Magnesium 2.3 Microbiology 05/26/19 11:30 Sputum - Expectorated Gram Stain - Final 05/26/19 11:30 Sputum - Expectorated Sputum Culture - Preliminary NORMAL RESPIRATORY GENARO 05/24/19 23:00 Blood - Peripheral Venous Blood Culture - Preliminary NO GROWTH OBTAINED AFTER 48 HOURS, INCUBATION TO CONTINUE FOR 3 DAYS. 05/24/19 23:00 Blood - Peripheral Venous Blood Culture - Preliminary NO GROWTH OBTAINED AFTER 48 HOURS, INCUBATION TO CONTINUE FOR 3 DAYS. 05/25/19 00:00 Urine - Urine Clean Catch Urine Culture - Preliminary Lactose Fermenting Neg Bacilli 05/25/19 09:30 Urine For Antigen Detection Legionella Antigen - Final 05/25/19 09:30 Urine For Antigen Detection Streptococcus pneumoniae Antigen (M - Final ASSESSMENT AND PLAN: ASSESSMENT AND PLAN: 74 yof with PMHx of COPD/Centrilobular emphysema, active smoker, chronic back pain, anxiety admitted with cough/productive sputum, hypoxia and chronic low back pain -Acute bibasilar community acquired PNA -Acute COPD exacerbation -Acute on ?chronic hypoxic/hypercapneic respiratory insufficiency -Osteoporotic multiple vertebral compression fractures. -Asymptomatic bacteruria -Tobacco dependence -Anxiety Plan: Doing well no new concerns, home oxygen arranged Dc home with PO abx, prednisone taper, nebulizer and pain regimen. patient advised outpatient Pulmonary, Dr. Herron and pain management follow up
[2019-05-27 11:50] VITALS: BP 128/61; PULSE 79; TEMP 98.2
--- NOTE | 2019-05-27 15:07 | DS ---
Physical Exam: SUBJECTIVE: Patient seen and examined OBJECTIVE: Vital Signs Period Temp Pulse Resp BP Sys/Lopez Pulse Ox Last 24 Hr 97.7 F-98.9 F 64-95 18-18 123-140/59-83 95-95 PHYSICAL EXAM GENERAL: The patient is awake, alert, and fully oriented. NAD. Alert HEAD: NC/AT. Moderate temporal wasting EYES: sclera anicteric, conjunctiva clear. ENT: Ears normal, nares patent w/ mild congestion, moist mucous membranes. NECK: Trachea midline, full range of motion, supple. LUNGS: b/l wheezes with improved coarse ronchi and expir wheezes b/l, no accessory muscle use. 2L NC HEART: Regular rate and rhythm, S1, S2 without murmur, rub or gallop. ABDOMEN: Soft, nontender, nondistended, normoactive bowel sounds, no guarding, no rebound. EXTREMITIES: 2+ pulses, warm, well-perfused, no edema. NEUROLOGICAL: Normal speech, gait not observed. LABS Laboratory Results - last 24 hr 05/27/19 05/27/19 07:10 07:10 WBC 7.0 RBC 3.31 L Hgb 10.6 L Hct 31.8 L MCV 96.2 H MCH 32.0 MCHC 33.3 RDW 13.4 Plt Count 281 MPV 9.0 Sodium 140 Potassium 3.8 Chloride 104 Carbon Dioxide 32 Anion Gap 4 L BUN 19.1 H Creatinine 0.7 Est GFR (CKD-EPI)AfAm 97.54 Est GFR (CKD-EPI)NonAf 84.16 Random Glucose 81 Calcium 8.9 Phosphorus 3.0 Magnesium 2.3 HOSPITAL COURSE: 74y F with PMH of COPD (not on O2), Chronic Back Pain (from an accident 10y ago) , Anxiety presenting to ED with complaints of SOB, cough productive of yellow sputum and chronic lower back pain. Ortho and NSX consulted for CTA findings of T12 acute vs subacute fx. Rec no surgical intervention, supportive care and pain control. Given muscle relaxant, lidoderm, prednisone, home tramadol which improved back pain. RT determined w/ pre- and post- that pt needed home O2. UCX grew Ecoli but pt asymptomatic. Stable for D/C with cefuroxime, neb albuterol, home O2. Date of Admission:05/25/19 Date of Discharge: 05/27/19 Minutes to complete discharge: 20 Discharge Summary Problems reviewed: Yes Reason For Visit: ACUTE EXACERBATION OF CHRONIC OBSTRUCTIVE Condition: Stable - Instructions Diet, Activity, Other Instructions: You were evaluated in the hospital for shortness of breath and cough. You received intravenous antibiotics, breathing treatments and oral steroids. Your breathing improved. It was determined that you needed oxygen for home. Please continue the following medications as instructed below. You were also evaluated by neurosurgery for your back pain, no surgical interventions recommended at this time. Tizanidine, a muscle relaxant, was recommended, which you may take as needed. Medications: - NEW medications: -- Cefuroxime 500mg, twice a day for 7 days -- Azithromycin 500mg, once a day for 2 more days -- Tizanidine HCl 2mg, up to 3 times daily as needed for back pain -- Lidoderm patch 1 patch every 12hours, and off for 12hours -- Albuterol, take 1 albuterol to be nebulized, every 6 hours as needed, up to 3 times daily for shortness of breath or chest tightness -- prednisone[DELTASONE]: --40mg once daily for 2days(05/27/19 - 05/28/19) --30mg once daily for 2days(05/29/19 - 05/30/19) --20mg once daily for 2days(05/31/19 - 06/01/19) --10mg once daily for 2days(06/02/19 - 06/03/19) Please follow-up with the physicians below within 1-2 weeks: - PCP: to discuss your recent hospitalizations - Neurosurgery(Dr Herron): to discuss your chronic back issues, possible need for additional imaging - Pain management (Dr. Tran) Additional instructions: -Home oxygen 2L continuous with rest and activity till assessed by doctor in 1- 2 weeks. NO SMOKING AROUND OXYGEN IS A FIRE HAZARD - diet: heart healthy diet(low sugar, low sodium, low fat, high fiber) - activity: as much activity as tolerated -Please be advised that this medication causes dizziness and drowsiness. It is important that you avoid driving, or operating heavy machinery when taking Tizanidine. Avoid taking it if dizzy or drowsy. And extra caution with your prior medications including clonazepam, ambien and tramadol which can again increase risk of dizziness and drowsiness and falls. Avoid taking together, taking if dizzy or drowsy as can increase risk of falls, accidents, fractures, bleed and . Please seek immediate medical evaluation or come to the Emergency Department if you experience: - trouble breathing, bloody cough, fever with temperature above 100.4F - confusion, loss of motor function, severe worsening back pain or any new concerns Referrals: Aric Tran MD [Staff Physician] - Jose Alfredo Herron MD [Staff Physician] - 1 Week Ammon Crouch MD [Staff Physician] - 1 Week Disposition: VNS/HOME HEALTH CARE - Home Medications Comprehensive Discharge Medication List: Ambulatory Orders Furosemide [Lasix -] 40 mg PO DAILY 01/21/15 Zolpidem Tartrate [Ambien] 10 mg PO HS 03/26/15 Pramipexole Di-HCl [Mirapex] 0.5 mg PO DAILY 05/25/19 Sumatriptan Succinate [Imitrex Injection -] 0.5 ml SQ PRN PRN 05/25/19 clonazePAM [Clonazepam] 2 mg PO DAILY 05/25/19 Azithromycin 500 mg PO DAILY #2 tablet 05/26/19 Cefuroxime Axetil [Cefuroxime] 500 mg PO BID #14 tablet 05/26/19 Lidocaine 5% Patch [Lidoderm -] 1 patch TP DAILY #7 patch 05/26/19 Prednisone See Taper PO DAILY #20 tablet 05/26/19 Tizanidine HCl 2 mg PO TID PRN #60 tablet 05/26/19 Tramadol HCl 50 mg PO DAILY PRN 05/26/19 Albuterol 0.083% Nebulizer Charmaine [Ventolin 0.083% Nebulizer Soln -] 1 neb NEB Q6H PRN #30 vial 05/27/19 Nebulizer Accessories [Adult Aerosol Mask] 1 each MC DAILY #1 each 05/27/19 Nebulizer and Compressor [Comp-Air Nebulizer System] 1 each ASDIR #1 each 03/07 This patient is new to me today: No Emergency Visit: No Critical Care patient: No - Discharge Referral Referred to [facility] No ATTENDING PHYSICIAN STATEMENT I saw and evaluated the patient. I reviewed the resident's note and discussed the case with the resident. I agree with the resident's findings and plan as documented. SUBJECTIVE: OBJECTIVE: ASSESSMENT AND PLAN:
== END 2019-05-27 13:09 | disposition home health service (06) | DRG 542 ==
LOC: JER 22:11 → JERBED 05-25 01:54 → J5S 05-25 04:35
PROVIDERS: ADMIT Internal Medicine; ATTEND Hospitalist
DX: M80.08XA Age-related osteoporosis with current pathological fracture, vertebra(e), initial encounter for fracture (principal); J18.9 Pneumonia, unspecified organism; J98.11 Atelectasis; J44.1 Chronic obstructive pulmonary disease with (acute) exacerbation; J44.0 Chronic obstructive pulmonary disease with (acute) lower respiratory infection; N39.0 Urinary tract infection, site not specified; F41.9 Anxiety disorder, unspecified; M54.9 Dorsalgia, unspecified; I44.4 Left anterior fascicular block; F17.210 Nicotine dependence, cigarettes, uncomplicated; B96.20 Unspecified Escherichia coli [E. coli] as the cause of diseases classified elsewhere
CPT/HCPCS: 36415; 36600; 71045-TC-FY; 71275-TC; 80048; 80053; 81003; 82803; 83605; 83735; 83880; 84100; 84484; 85025; 85027; 85610; 85730; 87040; 87070; 87086; 87186; 87205; 87899; 93005; 93010; 93306-TC; 94640; 94761; 96374; 96375; 97116-GP; 99283-25; 99284-25; G0008; J0131; J1644; Q2036; Q9967